=== PATIENT | male | born 1995 | race Caucasian/White ===

== ENCOUNTER 2023-11-21 15:14 | Outpatient (CLI) | payer OTHER | END 2023-11-21 15:15 | disposition home or self-care (01) | LOC: CSHRAD 15:14 | PROVIDERS: ATTEND Physician Assistant | DX: M25.551 Pain in right hip (principal); M25.552 Pain in left hip; M87.9 Osteonecrosis, unspecified; M16.0 Bilateral primary osteoarthritis of hip; M21.852 Other specified acquired deformities of left thigh ==

== ENCOUNTER 2024-03-25 12:29 | Outpatient (CLI) | payer OTHER ==
[2024-03-25 13:30] LABS: Hematocrit 45.7 % (38.8-50.0); Hemoglobin 15.1 g/dL (13.5-17.5); Mean Corpuscular Hemoglobin 26.9 pg (27.0-33.0); Mean Corpuscular Volume 81.3 fl (81.2-95.1); Mean Platelet Volume 8.9 fl (7.4-10.4); Platelet Count 239 10x3/uL (150-450); RBC Distribution Width 26.3 % (11.5-14.5); Red Blood Cell (RBC) Count 5.62 10x6/uL (4.32-5.72); White Blood Cell (WBC) Count 7.1 10x3/uL (3.5-10.5)
[2024-03-25 13:34] LABS: Prothrombin Time 10.4 sec (9.5-12.1)
[2024-03-25 13:37] LABS: Anion Gap 13 mmol/L (10-20); BUN (Urea Nitrogen) 11 mg/dL (8.9-20.6); Calc. Creatinine Clearance 0 mL/min (70-130); Calcium 9.6 mg/dL (7.8-10.44); Carbon Dioxide 27 mmol/L (22-29); Chloride 105 mmol/L (98-107); Estimated GFR 105; Glucose 88 mg/dL (70-105); Sodium 141 mmol/L (136-145)
== END 2024-03-25 12:30 | disposition home or self-care (01) ==
LOC: CSHLAB 12:29
PROVIDERS: ATTEND Orthopaedic Surgery
DX: Z01.812 Encounter for preprocedural laboratory examination (principal); M16.11 Unilateral primary osteoarthritis, right hip
CPT/HCPCS: 80048; 82306; 83036; 85027; 85610; 87081

== ENCOUNTER 2024-04-27 07:00 | Emergency (ER) | payer OTHER ==
[2024-04-27] MEDS ORDERED: Ketorolac Tromethamine 30 MG (1 mL) VIAL ONE (07:36)
[2024-04-27] MEDS ORDERED: Ondansetron PF 4 MG/2 ML Vial ONE (07:36)
[2024-04-27 07:51] LABS: #Basophils 0.04 10x3/uL (0.0-0.2); #Eosinphils 0.48 10x3/uL (0.0-0.5); #Neutrophils 4.53 10x3/uL (1.5-8.4); %Basophils 0.6 % (0.0-2.0); %Eosinophils 7.1 % (0.0-6.0); %Lymphocytes 17.4 % (18.0-47.0); %Monocytes 7.4 % (0.0-10.0); %Neutrophils 67.2 % (40.0-75.0); Hematocrit 38.8 % (38.8-50.0); Hemoglobin 12.7 g/dL (13.5-17.5); Mean Corpuscular HGB CONC 32.7 g/dL (32.0-36.0); Mean Corpuscular Hemoglobin 27.9 pg (27.0-33.0); Mean Corpuscular Volume 85.1 fL (81.2-95.1); Mean Platelet Volume 8.6 fL (7.4-10.4); Platelet Count 320 10x3/uL (150-450); RBC Distribution Width 18.6 % (11.5-14.5); Red Blood Cell (RBC) Count 4.56 10x6/uL (4.32-5.72); White Blood Cell (WBC) Count 6.7 10x3/uL (3.5-10.5)
[2024-04-27 08:17] LABS: ALT (SGPT) 11 U/L (8-55); AST (SGOT) 15 U/L (5-34); Alkaline Phosphatase 84 U/L (40-110); Anion Gap 15 mmol/L (10-20); BUN (Urea Nitrogen) 8 mg/dL (8.9-20.6); Bilirubin, Total 0.2 mg/dL (0.2-1.2); Calc. Creatinine Clearance 0 mL/min (70-130); Calcium 9.8 mg/dL (7.8-10.44); Carbon Dioxide 24 mmol/L (22-29); Chloride 106 mmol/L (98-107); Estimated GFR 115; Globulin 3.4 g/dL (2.4-3.5); Glucose 92 mg/dL (70-105); Potassium 3.6 mmol/L (3.5-5.1); Protein, Total 7.4 g/dL (6.0-8.3); Sodium 141 mmol/L (136-145)
[2024-04-27 09:55] LABS: Bilirubin Neg (Negative); Blood, Urine 150 (Negative); Glucose, Urine (Dipstick) Normal (Negative); Ketone, Urine Negative (Negative); Leukocyte Negative (Negative); Nitrite Negative (Negative); Protein, Urine (Dipstick) 30 mg/dl (Neg-Trace); Urobilinogen Normal mg/dL (Less than 2)
[2024-04-27 09:57] LABS: Clarity Cloudy (Clear)
[2024-04-27 10:00] LABS: Bacteria/HPF 1+ HPF (None Seen); CAUTI Indications for Culture Pelvic or flank pain; RBC/HPF Greater than 50 HPF (0-3); Squamous Epithelial 0-3 HPF (0-3); Urine Culture Reflex No No
== END 2024-04-27 09:30 | disposition home or self-care (01) ==
LOC: CSHERS 07:00
DX: N13.2 Hydronephrosis with renal and ureteral calculous obstruction (principal); F17.210 Nicotine dependence, cigarettes, uncomplicated; Z55.6 Problems related to health literacy
CPT/HCPCS: 74176; 80053; 81001; 85025; 96374; 96375; J1885; J2405

== ENCOUNTER 2024-07-29 10:54 | Inpatient (IN) | payer OTHER ==
[2024-07-10 13:26] VITALS: BMI 24.4
[2024-07-29] MEDS ORDERED: Ketorolac Tromethamine 30 MG (1 mL) VIAL ONE ×2 (11:41→12:27)
[2024-07-29] MEDS ORDERED: Gabapentin 300 MG CAP ONE (11:41)
[2024-07-29] MEDS ORDERED: Acetaminophen 325 MG TAB ONE (11:42)
[2024-07-29] MEDS ORDERED: fentaNYL 50 mcg/mL 1 mL Vial ONE ×2 (12:23→12:42)
[2024-07-29] MEDS ORDERED: Morphine 10 MG/ML VIAL ONE (12:26)
[2024-07-29] MEDS ORDERED: Vancomycin 1 GM VIAL ONE (12:27)
[2024-07-29] MEDS ORDERED: EPINEPHrine 1 MG/ML VIAL ONE (12:27)
[2024-07-29] MEDS ORDERED: Tranexamic Acid 1,000 MG/10 ML VIAL ONE (12:27)
[2024-07-29] MEDS ORDERED: Ropivacaine 0.2% HCl/PF 40 ML ONE (12:27)
[2024-07-29] MEDS ORDERED: Lidocaine 1% MPF 2 ML VIAL ONE (12:40)
[2024-07-29] MEDS ORDERED: Bupivacaine 0.25% HCL 30 ML VIAL ONE (12:40)
[2024-07-29] MEDS ORDERED: Midazolam HCl 2 mg/2 ml Vial ONE (12:42)
[2024-07-29] MEDS ORDERED: CEFAZOLIN 2 GM VIAL ONE (12:52)
[2024-07-29] MEDS ORDERED: MINERAL OIL/WHITE PETROLATUM 3.5 GM TUBE ONE (12:56)
[2024-07-29] MEDS ORDERED: Promethazine HCl 25 MG/ML VIAL IM PRN (13:13)
[2024-07-29] MEDS ORDERED: Acetaminophen 325 MG TAB PO PRN (13:13)
[2024-07-29] MEDS ORDERED: diphenhydrAMINE 25 MG CAP PO PRN (13:13)
[2024-07-29] MEDS ORDERED: Zolpidem Tartrate 5 MG TAB PO PRN (13:13)
[2024-07-29] MEDS ORDERED: Ondansetron PF 4 MG/2 ML Vial IVP PRN (13:13)
[2024-07-29] MEDS ORDERED: Dexamethasone 20 MG/5 ML VIAL ONE (13:36)
[2024-07-29] MEDS ORDERED: Ondansetron PF 4 MG/2 ML Vial ONE (13:36)
[2024-07-29] MEDS ORDERED: Maxitrol 0.1% Opth Oint 3.5 GM TUBE ONE (14:06)
[2024-07-29] MEDS ORDERED: Lidocaine 2% PF 5 ML VIAL ONE (14:25)
[2024-07-29] MEDS ORDERED: SUGAMMADEX SODIUM 200 MG/2 ML VIAL ONE (14:25)
[2024-07-29] MEDS ORDERED: Dexmedetomidine 200 MCG/2 ML VIAL ONE (14:25)
[2024-07-29] MEDS ORDERED: Rocuronium Bromide 10 MG/ML (10ML VIAL) ONE (14:25)
[2024-07-29] MEDS ORDERED: Lidocaine 4% PF 5 ML AMP ONE (14:25)
[2024-07-29] MEDS: Sodium Chloride 0.9% 1,000 ML IV SCH (17:01)
[2024-07-29] MEDS: HYDROcodone/Acetaminophen 10/325 mg Tablet PO PRN (18:12)
[2024-07-29] MEDS: CEFAZOLIN 2 GM in Sodium Chloride 0.9% 100 ML IVPB SCH (21:22)
[2024-07-29] MEDS: Senokot S 8.6-50 MG TAB PO SCH (21:22)
[2024-07-29] MEDS: Aspirin 81 mg Enteric Coated Tablet PO SCH (21:22)
[2024-07-29] MEDS: Ketorolac Tromethamine 30 MG (1 mL) VIAL IVP SCH (21:24)
[2024-07-30 04:06] LABS: Hematocrit 39.1 % (38.8-50.0); Hemoglobin 12.5 g/dL (13.5-17.5); Mean Corpuscular Hemoglobin 28.3 pg (27.0-33.0); Mean Corpuscular Volume 88.7 fL (81.2-95.1); Mean Platelet Volume 9.3 fL (7.4-10.4); Platelet Count 212 10x3/uL (150-450); RBC Distribution Width 13.4 % (11.5-14.5); Red Blood Cell (RBC) Count 4.41 10x6/uL (4.32-5.72); White Blood Cell (WBC) Count 10.7 10x3/uL (3.5-10.5)
[2024-07-30] MEDS: HYDROcodone/Acetaminophen 10/325 mg Tablet PO PRN (08:39)
[2024-07-30] MEDS: Ferrous Gluconate 324 MG TAB PO SCH (09:14)
[2024-07-30] MEDS: Multivitamin W/ Minerals 1 TAB PO SCH (09:14)
[2024-07-30 12:38] VITALS: BP 135/86; TEMP 98.2
[2024-08-01] MEDS ORDERED: CeleCOXIB 100 MG CAP PO SCH (09:00)
== END 2024-07-30 18:25 | disposition home or self-care (01) | DRG 470 ==
LOC: CSHSDC 10:54 → CSHTELE 13:14
PROVIDERS: ADMIT Orthopaedic Surgery; ATTEND Orthopaedic Surgery
PROC: 0SRB0JZ Replacement of Left Hip Joint with Synthetic Substitute, Open Approach (ICD-10-PCS; principal; 2024-07-29)
DX: M16.12 Unilateral primary osteoarthritis, left hip (principal); M87.852 Other osteonecrosis, left femur; F32.A Depression, unspecified; F41.9 Anxiety disorder, unspecified; D64.9 Anemia, unspecified; Z79.899 Other long term (current) drug therapy; Z87.891 Personal history of nicotine dependence
CPT/HCPCS: 36415; 85027; 94762; A6197; C1713; C1776; J0171; J0665; J1100; J1885; J2001; J2250; J2270; J2405; J2795; J3010; J3370; J7030